=== PATIENT | female | born 1945 | race Asian ===

== ENCOUNTER → 2016-10-11 | Outpatient (CLI) | payer MEDICARE, BC ==
[2016-10-11 12:14] LABS: Basophils # (A) 0.1 k/uL (0-0.2); Basophils % (A) 1 %; CH 26.3; Eosinophils # (A) 0.1 k/uL (0-0.7); Eosinophils % (A) 2 %; HCT 41.9 % (34.0-46.0); HDW 2.63; HGB 12.9 gm/dL (11.4-16.0); Luc % (Auto) 2; Lymphocytes # (A) 1.9 k/uL (1.0-4.8); Lymphocytes % (A) 32 %; MCH 25.5 pg (25.0-35.0); MCHC 30.8 g/dL (31.0-37.0); MCV 82.7 fL (80.0-100.0); Mean Platelet Volume 8.1; Monocytes # (A) 0.4 k/uL (0-1.0); Monocytes % (A) 6 %; Neutrophils # (A) 3.5 k/uL (1.3-7.7); Neutrophils % (A) 58 %; RBC 5.07 m/uL (3.80-5.40); RDW 13.5 % (11.5-15.5); WBC 6.1 k/uL (3.8-10.6); WBC (Perox) 6.52
[2016-10-11 12:19] LABS: INR 1.2 (<1.1); Partial Thromboplastin Time 25.3 sec (22.0-30.0)
[2016-10-11 12:49] LABS: Anion Gap 11 mmol/L; Blood Urea Nitrogen 19 mg/dL (7-17); Carbon Dioxide 25 mmol/L (22-30); Chloride 106 mmol/L (98-107); Glucose 120 mg/dL (74-99); Sodium 142 mmol/L (137-145)
[2016-10-11 12:50] LABS: ALT 37 U/L (9-52); AST 21 U/L (14-36); Alkaline Phosphatase 67 U/L (38-126); Calcium 9.3 mg/dL (8.4-10.2); Non-African American GFR(MDRD) >60 (>60 ml/min/1.73 sqM); Total Bilirubin 0.6 mg/dL (0.2-1.3); Total Protein 7.3 g/dL (6.3-8.2)
[2016-10-14 10:54] LABS: Mis test requested (Blood) Factor VII Activity
== END | disposition home or self-care (01) ==
LOC: LABWHC1 11:50
PROVIDERS: ATTEND Internal Medicine Cardiovascular Disease
DX: D68.2 Hereditary deficiency of other clotting factors (principal); I10 Essential (primary) hypertension
CPT/HCPCS: 36415; 80053; 85025; 85230; 85610; 85730

== ENCOUNTER 2017-05-07 14:49 | Emergency (ER) | payer MEDICARE, BC ==
--- NOTE | 2017-05-07 15:10 | ED ---
General Adult HPI - General Chief complaint: Extremity Injury, Upper Stated complaint: Fall/right shoulder pain Time Seen by Provider: 05/07/17 15:03 Source: patient, family, RN notes reviewed Mode of arrival: ambulatory Limitations: no limitations - History of Present Illness Initial comments: Chief complaint history of present illness 72-year-old female here with family. The patient reports that she injured her right shoulder right arm at home. Painful swollen. Denies any head or neck injury. - Related Data Home Medications Medication Instructions Recorded Confirmed Ergocalciferol [Vitamin D2] 50,000 unit PO Q30D 05/07/17 05/07/17 Previous Rx's Medication Instructions Recorded Hydrocodone/Acetaminophen [[place] 1 each PO Q6HR PRN #20 tab 05/07/17 5-325] Ibuprofen [Motrin] 800 mg PO Q6HR PRN #20 tab 05/07/17 Allergies Allergy/AdvReac Type Severity Reaction Status Date / Time No Known Allergies Allergy Verified 05/07/17 15:08 Review of Systems ROS Statement: Those systems with pertinent positive or pertinent negative responses have been documented in the HPI. Review of systems patient has no other complaints this time other than pain to the proximal right humerus right shoulder. Holding it in flexed at the elbow and internally rotated over her chest. Past medical problems no high blood pressure heart disease diabetes cancer stroke or asthma. Patient denies any surgeries. No known ALLERGIES. Family history noncontributory. ROS Other: All systems not noted in ROS Statement are negative. Past Medical History Past Medical History: No Reported History History of Any Multi-Drug Resistant Organisms: None Reported Past Surgical History: No Surgical Hx Reported Past Psychological History: No Psychological Hx Reported Smoking Status: Never smoker Past Alcohol Use History: Rare Past Drug Use History: None Reported General Exam - General Exam Comments Initial Comments: General: The patient is awake and alert, he with complaint of an evidence of injury to right proximal humerus and shoulder area. Vital signs temp 98.5 pulse 68 respiratory rate 20 pulse ox 97% room air Eye: No complaint of any visual acuity changes. Ears, nose, mouth and throat: No complaint of injury to her jaw. Neck: Full range of motion, neck is supple, after admission the patient said she had mild discomfort to her posterior mid neck area. This will be x-rayed No complaint of chest pain shortness breath GI or problems. Musculoskeletal: Patient has pain swelling proximal right humerus and shoulder. Neurovascular status to the hand is intact. No complaint of pain to the fingers or wrists. No other joints involved. Neurological: No complaint of any neuro deficits. Limitations: no limitations Course Vital Signs 05/07/17 14:57 Temperature 98.5 F Pulse Rate 68 Respiratory 20 Rate O2 Sat by Pulse 97 Oximetry Medical Decision Making - Medical Decision Making Tray the cervical spine was done reviewed by me. No acute bony irregularity. There is degenerative changes. There is cervical straightening from probably spasms. No acute bony irregularity is appreciated. Awaiting radiologist's final impression. X-ray of the right shoulder was done showing a nondisplaced fracture. . Glenoid appears normal. Etiologies reviewed x-rays of the cervical spine and his final impression is mild foraminal narrowing at C5-C6. Also degenerative disc changes at C4-C5 C5- C6 as read by Dr. Anderson. X-ray of the right humerus was done reviewed by radiologist and his impression is a fracture at the surgical neck of the humerus. Some changes may be at the greater tuberosity suggesting fracture there as well. No additional fractures are evident. Impression fracture of the proximal right humerus as read by Dr. Anderson. She'll be placed on Motrin 800 mg 1 every 8 hours as needed for pain and [place] 5 /325 as needed for breakthrough pain. The patient referred on to on-call orthopedics today, Dr. Herrmann. 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 Take medications as directed Prescriptions: Hydrocodone/Acetaminophen [[place] 5-325] 1 each PO Q6HR PRN #20 tab PRN Reason: Breakthrough Pain Ibuprofen [Motrin] 800 mg PO Q6HR PRN #20 tab PRN Reason: Take with food for pain Referrals: None,Stated [Primary Care Provider] - 1-2 days Nash Sena MD [STAFF PHYSICIAN] - 1-2 days Time of Disposition: 15:46
--- NOTE | 2017-05-07 15:35 | XR ---
EXAMINATION TYPE: XR cervical spine comp DATE OF EXAM: 05/07/2017 COMPARISON: NONE HISTORY: Right arm pain, fall TECHNIQUE: 5 view cervical spine FINDINGS: Disc space narrowing is present C4-C5. Anterior vertebral body spurring is present. Milder disc space narrowing and anterior vertebral body spurring is present C5-6. There is straightening of the cervical spine in the lateral projection. Posterior spinal lamellar line is intact. Prevertebral space is normal. There is some foraminal narrowing C4-5 C5-6 on the right and C 5 6 on the left. [place] toid is limited with overlying occiput. IMPRESSION: 1. Mild foraminal narrowing C5-C6 discussed above. 2. Degenerative disc changes C4-5 C5-6.
--- NOTE | 2017-05-07 15:36 | XR ---
EXAMINATION TYPE: XR humerus RT DATE OF EXAM: 05/07/2017 COMPARISON: NONE HISTORY: Fall, pain TECHNIQUE: 2 view right humerus FINDINGS: There is a fracture at the surgical neck of the humerus. Some changes may be at the greater tuberosity suggesting fracture there as well. No additional fractures are evident. IMPRESSION: 1. Fracture of the proximal right humerus.
[2017-05-07 16:05] VITALS: BP 147/78; PULSE 74; RESP 18; TEMP 98.7
== END 2017-05-07 16:05 | disposition home or self-care (01) ==
LOC: EC 14:49
DX: S42.214A Unspecified nondisplaced fracture of surgical neck of right humerus, initial encounter for closed fracture (principal); S16.1XXA Strain of muscle, fascia and tendon at neck level, initial encounter; M47.812 Spondylosis without myelopathy or radiculopathy, cervical region; Z79.899 Other long term (current) drug therapy; W01.0XXA Fall on same level from slipping, tripping and stumbling without subsequent striking against object, initial encounter; Y92.009 Unspecified place in unspecified non-institutional (private) residence as the place of occurrence of the external cause
CPT/HCPCS: 72050; 99283

== ENCOUNTER → 2017-09-29 | Outpatient (CLI) | payer MEDICARE, BC ==
--- NOTE | 2017-09-30 11:06 | MM ---
Reason for exam: screening (asymptomatic). Last mammogram was performed 2 years and 9 months ago. History: Patient is postmenopausal. Took estrogen for 7 years. Physical Findings: A clinical breast exam by your physician is recommended on an annual basis and results should be correlated with mammographic findings. MG 3D Screening Mammo W/Cad Bilateral CC and MLO view(s) were taken. Prior study comparison: January 08, 2015, bilateral MG screening mammo w CAD. There are scattered fibroglandular densities. No significant changes when compared with prior studies. ASSESSMENT: Benign, BI-RAD 2 RECOMMENDATION: Routine screening mammogram of both breasts in 1 year.
== END | disposition home or self-care (01) ==
LOC: RADMAMWWP 13:44
PROVIDERS: ATTEND Obstetrics & Gynecology
DX: Z12.31 Encounter for screening mammogram for malignant neoplasm of breast (principal)
CPT/HCPCS: 77063; 77067

== ENCOUNTER → 2017-09-30 | Outpatient (CLI) | payer MEDICARE, BC ==
[2017-09-30 09:51] LABS: HCT 39.4 % (34.0-46.0); HGB 12.8 gm/dL (11.4-16.0); MCH 26.1 pg (25.0-35.0); MCHC 32.6 g/dL (31.0-37.0); MCV 80.2 fL (80.0-100.0); Mean Platelet Volume 8.8; Platelet Count 193 k/uL (150-450); RBC 4.91 m/uL (3.80-5.40); RDW 14.5 % (11.5-15.5); WBC 7.7 k/uL (3.8-10.6)
[2017-09-30 10:30] LABS: ALT 33 U/L (9-52); AST 24 U/L (14-36); Albumin 3.9 g/dL (3.5-5.0); Alkaline Phosphatase 61 U/L (38-126); Anion Gap 8 mmol/L; Blood Urea Nitrogen 25 mg/dL (7-17); Calcium 9.6 mg/dL (8.4-10.2); Carbon Dioxide 27 mmol/L (22-30); Chloride 107 mmol/L (98-107); Cholesterol 134 mg/dL (<200); Glucose 99 mg/dL (74-99); HDL Cholesterol 59 mg/dL (40-60); LDL Cholesterol,Calculated 64 mg/dL (0-99); Potassium 4.5 mmol/L (3.5-5.1); Sodium 142 mmol/L (137-145); Total Bilirubin 0.4 mg/dL (0.2-1.3); Total Protein 6.8 g/dL (6.3-8.2); Triglycerides 53 mg/dL (<150)
[2017-09-30 17:57] LABS: Hemoglobin A1C 5.6 % (4.0-6.0)
== END | disposition home or self-care (01) ==
LOC: LABWHC1 09:10
PROVIDERS: ATTEND Internal Medicine Cardiovascular Disease
DX: E16.2 Hypoglycemia, unspecified (principal); E55.9 Vitamin D deficiency, unspecified
CPT/HCPCS: 36415; 80053; 80061; 82306; 83036; 85027

== ENCOUNTER → 2017-11-01 | Outpatient (CLI) | payer MEDICARE, BC ==
--- NOTE | 2017-11-01 12:16 | MR ---
EXAMINATION TYPE: MR shoulder RT wo con DATE OF EXAM: 11/01/2017 COMPARISON: Radiograph 05/07/2017 HISTORY: 72-year-old female with right shoulder pain TECHNIQUE: Multiplanar, multisequence imaging of the right shoulder is performed without contrast. FINDINGS: Intracapsular long head biceps tendon is not well seen and could be markedly tendinotic or partially torn. There is partial tear of the superior and middle third subscapularis tendon fibers. Inferior third fi bers remain intact. Moderate degenerative joint space narrowing and marginal spurring at the acromioclavicular joint. Mil d encroachment onto the subacromial space. However, there is a full-thickness tear of essentially the entire supraspinatus tendon measuring 2.5 cm AP with stump retracted to the level of the AC joint by 3.1 cm. There is fluid and debris within t he intervening gap. Heterogeneous signal within the infraspinatus tendon compatible with tendinosis. Mild effusion within the subacromial/subdeltoid bursa. There are mild fatty streaks within both super status and subscapularis muscle bellies. No significan t muscle atrophy is seen. There is heterogeneous signal at the surgical neck level and some focal contour angulation along the posterior aspect of the surgical neck, refer to sagittal T1 image 18. Findings compatible with healed surgical neck fracture. There is inferior humeral spurring with suggestion of moderate thickness cartilage loss along the sup erior humeral head articular surface. There is some degenerative signal in the superior labrum and small bilateral joint effusion. Joint fl uid extends along the long head biceps tendon sheath. No Hill-Sachs deformity or os acromiale. Patchy red marrow hyperplasia is present. IMPRESSION: 1. Diffuse rotator cuff tendinosis with a full-thickness tear involving essentially the entire supras pinatus tendon (2.5 cm AP). Stump is retracted to the level of the AC joint by approximately 3.1 cm. 2. Partial tear of the superior and middle third subscapularis tendon fibers. 3. Only mild fatty infiltration of both supraspinatus and subscapularis muscle bellies at this time. 4. Intracapsular long head biceps tendon is not well seen and is either markedly tendinotic or partia lly torn. Associated long head biceps tenosynovitis. 5. 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 6. Mild glenohumeral joint osteoarthrosis. 7. Healed surgical neck fracture deformity of the proximal humerus.
== END | disposition home or self-care (01) ==
LOC: RADMRIMAIN 11:09
PROVIDERS: ATTEND Orthopaedic Surgery
DX: M75.121 Complete rotator cuff tear or rupture of right shoulder, not specified as traumatic (principal); S46.811A Strain of other muscles, fascia and tendons at shoulder and upper arm level, right arm, initial encounter; M19.011 Primary osteoarthritis, right shoulder; M65.811 Other synovitis and tenosynovitis, right shoulder

== ENCOUNTER → 2019-07-24 | Outpatient (CLI) | payer MEDICARE, BC | END | disposition home or self-care (01) | LOC: LABWHC1 13:48 | PROVIDERS: ATTEND Obstetrics & Gynecology | DX: R19.00 Intra-abdominal and pelvic swelling, mass and lump, unspecified site (principal) | CPT/HCPCS: 36415 ==

== ENCOUNTER → 2019-08-24 | Outpatient (CLI) | payer MEDICARE, BC ==
--- NOTE | 2019-08-27 10:44 | MM ---
Reason for exam: clinical finding. Last mammogram was performed 1 year and 11 months ago. History: Patient is postmenopausal. Took estrogen for 7 years. Physical Findings: Nurse did not find any significant physical abnormalities on exam. MG 3D Diag Mammo W/Cad TONI Bilateral CC and MLO view(s) were taken. XCCL view(s) were taken of the right breast. Prior study comparison: September 29, 2017, bilateral MG 3d screening mammo w/cad. January 08, 2015, bilateral MG screening mammo w CAD. There are scattered fibroglandular densities. Benign appearing bilateral calcifications. No suspicious abnormality. No significant new findings when compared with previous films. These results were verbally communicated with the patient and result sheet given to the patient on 08/24/19. ASSESSMENT: Benign, BI-RAD 2 RECOMMENDATION: Routine screening mammogram of both breasts in 1 year.
--- NOTE | 2019-08-27 10:45 | USB ---
Reason for exam: clinical finding. History: Patient is postmenopausal. Took estrogen for 7 years. US Breast LT Left complete breast ultrasound includes all four quadrants, the retroareolar region and axilla. Finding demonstrates no cystic or solid lesion seen. No suspicious sonographic finding. These results were verbally communicated with the patient and result sheet given to the patient on 08/24/19. ASSESSMENT: Negative, BI-RAD 1 RECOMMENDATION: Routine screening mammogram of both breasts in 1 year.
== END | disposition home or self-care (01) ==
LOC: RADMAMWWP 13:15
PROVIDERS: ATTEND Obstetrics & Gynecology
DX: N60.02 Solitary cyst of left breast (principal)
CPT/HCPCS: 77066; 76641; G0279; 77062

== ENCOUNTER → 2019-09-11 | Outpatient (CLI) | payer MEDICARE, BC ==
--- NOTE | 2019-09-11 11:15 | XR ---
EXAMINATION TYPE: XR chest 2V DATE OF EXAM: 09/11/2019 COMPARISON: Chest x-ray November 26, 2014. HISTORY: Presurgical study. TECHNIQUE: Frontal and lateral views of the chest are obtained. FINDINGS: There is no focal air space opacity, pleural effusion, or pneumothorax seen. The cardiac silhouette size is now mildly enlarged with atherosclerotic thoracic aorta. Underlying dextroconvex s coliosis centered mid to lower thoracic spine. IMPRESSION: Mild cardiomegaly without acute pulmonary process.
[2019-09-11 11:40] LABS: Basophils % (A) 1 %; Eosinophils # (A) 0.1 k/uL (0-0.7); Eosinophils % (A) 2 %; HCT 38.7 % (34.0-46.0); HGB 12.5 gm/dL (11.4-16.0); Lymphocytes % (A) 28 %; MCH 26.3 pg (25.0-35.0); MCHC 32.2 g/dL (31.0-37.0); MCV 81.8 fL (80.0-100.0); Mean Platelet Volume 8.8; Monocytes # (A) 0.4 k/uL (0-1.0); Monocytes % (A) 6 %; Neutrophils # (A) 4.5 k/uL (1.3-7.7); Neutrophils % (A) 62 %; Platelet Count 218 k/uL (150-450); RBC 4.73 m/uL (3.80-5.40); RDW 13.5 % (11.5-15.5); WBC 7.3 k/uL (3.8-10.6)
[2019-09-11 17:02] LABS: Albumin 4.3 g/dL (3.80-4.90); Albumin/Globulin Ratio 1.95 (1.60-3.17); Anion Gap 5.7 mmol/L (4.00-12.00); BUN/Creat Ratio 33.75 Ratio (12.00-20.00); Calcium 9.5 mg/dL (8.7-10.3); Carbon Dioxide 28.3 mmol/L (21.6-31.8); Globulin 2.2 g/dL (1.6-3.3); Non-African American GFR(CKD) 71.6 (60.0-200.0); Potassium 5.1 mmol/L (3.5-5.5); Total Bilirubin 0.4 mg/dL (0.3-1.2); Total Protein 6.5 g/dL (6.2-8.2)
== END | disposition home or self-care (01) ==
LOC: LABWHC1 10:30
DX: I51.7 Cardiomegaly (principal); R19.00 Intra-abdominal and pelvic swelling, mass and lump, unspecified site
CPT/HCPCS: 36415; 71046; 80053; 85025

== ENCOUNTER → 2021-09-10 | Outpatient (CLI) | payer MEDICARE, BC ==
[2021-09-10 15:05] LABS: ALT 17 U/L (8-44); AST 19 U/L (13-35); African American GFR (CKD) 96.2 (60.0-200.0); Albumin 4.2 g/dL (3.8-4.9); Albumin/Globulin Ratio 1.68 (1.60-3.17); Alkaline Phosphatase 82 U/L (41-126); BUN/Creat Ratio 35.71 Ratio (12.00-20.00); Calcium 9.6 mg/dL (8.7-10.3); Carbon Dioxide 26.1 mmol/L (20.0-27.5); Chloride 106 mmol/L (96-109); Globulin 2.5 g/dL (1.6-3.3); Glucose 91 mg/dL (70-110); Potassium 4.3 mmol/L (3.5-5.5); Sodium 141 mmol/L (135-145); Total Protein 6.7 g/dL (6.2-8.2)
[2021-09-10 15:06] LABS: Chol/HDL Ratio 2.42 Ratio; LDL Cholesterol,Calculated 80.7 mg/dL (0.0-131.0); VLDL Calculation 10.18 mg/dL (5.00-40.00)
== END | disposition home or self-care (01) ==
LOC: LABWHC1 08:31
PROVIDERS: ATTEND Obstetrics & Gynecology
DX: N95.9 Unspecified menopausal and perimenopausal disorder (principal)
CPT/HCPCS: 36415; 80053; 80061; 83036

== ENCOUNTER → 2021-09-30 | Outpatient (CLI) | payer MEDICARE, BC ==
--- NOTE | 2021-10-01 09:10 | MM ---
Reason for exam: screening (asymptomatic). Last mammogram was performed 2 years and 1 month ago. History: Patient is postmenopausal. Took estrogen for 7 years. Physical Findings: A clinical breast exam by your physician is recommended on an annual basis and results should be correlated with mammographic findings. MG 3D Screening Mammo W/Cad Bilateral CC and MLO view(s) were taken. XCCL view(s) were taken of the right breast. Prior study comparison: August 24, 2019, bilateral MG 3d diag mammo w/cad TONI. September 29, 2017, bilateral MG 3d screening mammo w/cad. There are scattered fibroglandular densities. No significant changes when compared with prior studies. ASSESSMENT: Benign, BI-RAD 2 RECOMMENDATION: Routine screening mammogram of both breasts in 1 year.
== END | disposition home or self-care (01) ==
LOC: RADMAMWWP 10:57
PROVIDERS: ATTEND Obstetrics & Gynecology
DX: Z12.31 Encounter for screening mammogram for malignant neoplasm of breast (principal)
CPT/HCPCS: 77063; 77067

== ENCOUNTER → 2022-12-02 | Outpatient (CLI) | payer MEDICARE ==
[2022-12-02 14:20] LABS: Basophils # (A) 0.07 X 10*3/uL (0.00-0.10); Basophils % (A) 1.1 %; Eosinophils # (A) 0.15 X 10*3/uL (0.04-0.35); Eosinophils % (A) 2.3 %; HCT 39.4 % (37.2-46.3); HGB 12.4 g/dL (12.0-15.0); Immature Grans, Automated 0.2 %; Lymphocytes # (A) 2.41 X 10*3/uL (0.90-5.00); Lymphocytes % (A) 37.2 %; MCH 25.9 pg (27.0-32.0); MCHC 31.5 g/dL (32.0-37.0); MCV 82.3 fL (80.0-97.0); Monocytes # (A) 0.52 X 10*3/uL (0.20-1.00); NRBC Per 100 WBC 0 /100 WBCS (0.0-0.0); Neutrophils # (A) 3.31 X 10*3/uL (1.80-7.70); Neutrophils % (A) 51.2 %; Platelet Count 243 X 10*3/uL (140-440); RBC 4.79 X 10*6/uL (4.10-5.20); RDW 14.5 % (11.5-14.5); WBC 6.47 X 10*3/uL (4.50-10.00)
[2022-12-02 14:53] LABS: ALT 18 U/L (8-44); AST 19 U/L (13-35); African American GFR (CKD) 92.2 (60.0-200.0); Albumin 4.1 g/dL (3.8-4.9); Albumin/Globulin Ratio 1.49 (1.60-3.17); Alkaline Phosphatase 83 U/L (41-126); BUN/Creat Ratio 32.45 Ratio (12.00-20.00); Blood Urea Nitrogen 23.4 mg/dL (9.0-27.0); Calcium 9.4 mg/dL (8.7-10.3); Carbon Dioxide 26.7 mmol/L (20.0-27.5); Chloride 104 mmol/L (96-109); Creatine Kinase 77 U/L (26-186); Globulin 2.7 g/dL (1.6-3.3); Glucose 93 mg/dL (70-110); Non-African American GFR(CKD) 79.5 (60.0-200.0); Phosphorus 3.7 mg/dL (2.4-5.1); Potassium 4.2 mmol/L (3.5-5.5); Sodium 142 mmol/L (135-145); Total Protein 6.8 g/dL (6.2-8.2); Uric Acid 4.6 mg/dL (2.9-7.7)
[2022-12-02 15:09] LABS: C Reactive Protein <0.30 mg/dL (0.00-0.80); Chol/HDL Ratio 2.15 Ratio; LDL Cholesterol,Calculated 76.8 mg/dL (0.0-131.0); VLDL Calculation 10.34 mg/dL (5.00-40.00)
[2022-12-02 16:57] LABS: Erythrocyte Sedimentation Rate 11 mm/Hr (0-30)
== END | disposition home or self-care (01) ==
LOC: LABWHC1 09:21
PROVIDERS: ATTEND Internal Medicine
DX: Z00.00 Encounter for general adult medical examination without abnormal findings (principal); I10 Essential (primary) hypertension; D64.9 Anemia, unspecified; E78.5 Hyperlipidemia, unspecified; E11.65 Type 2 diabetes mellitus with hyperglycemia; E55.9 Vitamin D deficiency, unspecified
CPT/HCPCS: 36415; 80053; 80061; 82306; 82550; 83036; 83735; 84100; 84443; 84550; 85025; 85652; 86140

== ENCOUNTER 2023-01-21 10:06 | Day surgery (SDC) | payer MEDICARE ==
[2023-01-19 11:30] VITALS: BMI 25.0
[~2023-01-21 10:06] MED LIST: LACTATED RINGERS 1,000 ML IV SCH; LIDOCAINE 1% (10MG/ML) FOR IV START INTRADERMA PRN
[2023-01-21 10:32] VITALS: RESP 16; TEMP 98.1
[2023-01-21] MEDS ORDERED: PROPOFOL 10 MG/ML 20 ML VIAL IV ONE (11:01)
[2023-01-21] MEDS ORDERED: LIDOCAINE 2% INJ 20 MG/ML (2 ML VIAL) ONE (11:01)
--- NOTE | 2023-01-21 11:18 | P.PCN ---
Date of Procedure: 01/21/23 Procedure(s) Performed: BRIEF HISTORY: Patient is a 77-year-old pleasant female scheduled for an elective colonoscopy as a part of screening for colon cancer and family history of colon cancer. Her brother was diagnosed with colon cancer in his symptoms. PROCEDURE PERFORMED: Colonoscopy with biopsy. PREOPERATIVE DIAGNOSIS: Screening for colon cancer/family history of colon cancer. IV sedation per Anesthesia. PROCEDURE: After informed consent was obtained, the patient, was brought into the endoscopy unit. IV sedation was administered by Anesthesia under continuous monitoring. Digital rectal examination was normal. Initially the Olympus CF-160 flexible video colonoscope was then inserted in the rectum, gradually advanced into the cecum without any difficulty. Careful examination was performed as the scope was gradually being withdrawn. Ileocecal valve and the appendiceal orifice were visualized and appeared normal. Prep was excellent. Mucosa of the cecum, ascending colon, transverse colon, descending colon, appeared normal. The sigmoid had 2 small 3 mm polyp that was removed by cold biopsy sigmoid colon, and rectum appeared normal. Retroflexion was performed in the rectum and grade 2 hemorrhoids were seen. The patient tolerated the procedure well. IMPRESSION: 3 mm 2 sigmoid polyp status post cold biopsy Scattered diffuse diverticulosis Hemorrhoids RECOMMENDATIONS: Findings of this examination were discussed with the patient as well as her family. She was advised to follow with the biopsy results. Advised to be a high-fiber diet and take fiber supplements a regular basis.
[2023-01-21 11:58] VITALS: BP 152/77; PULSE 54
== END 2023-01-21 12:01 | disposition home or self-care (01) ==
LOC: ORWHC2ENDO 10:06
PROVIDERS: ATTEND Internal Medicine Gastroenterology
DX: Z12.11 Encounter for screening for malignant neoplasm of colon (principal); K63.5 Polyp of colon; K64.1 Second degree hemorrhoids; K57.30 Diverticulosis of large intestine without perforation or abscess without bleeding; I10 Essential (primary) hypertension; Z91.018 Allergy to other foods; Z79.899 Other long term (current) drug therapy; Z80.0 Family history of malignant neoplasm of digestive organs
CPT/HCPCS: 88305; 45380; J2704; J2001

== ENCOUNTER → 2023-12-23 | Outpatient (CLI) | payer MEDICARE ==
[2023-12-23 16:07] LABS: Basophils # (A) 0.07 X 10*3/uL (0.00-0.10); Eosinophils # (A) 0.11 X 10*3/uL (0.04-0.35); Eosinophils % (A) 1.6 %; HCT 40.4 % (37.2-46.3); HGB 13.1 g/dL (12.0-15.0); Lymphocytes # (A) 1.85 X 10*3/uL (0.90-5.00); Lymphocytes % (A) 26.5 %; MCH 26.3 pg (27.0-32.0); MCHC 32.4 g/dL (32.0-37.0); Monocytes # (A) 0.53 X 10*3/uL (0.20-1.00); Monocytes % (A) 7.6 %; NRBC Per 100 WBC 0 X 10*3/uL (0.00-0.01); Platelet Count 241 X 10*3/uL (140-440); RBC 4.99 X 10*6/uL (4.10-5.20); RDW 14.5 % (11.5-14.5); WBC 6.98 X 10*3/uL (4.50-10.00)
[2023-12-23 16:55] LABS: Erythrocyte Sedimentation Rate 11 mm/Hr (0-30)
[2023-12-23 19:17] LABS: BUN/Creat Ratio 31.29 Ratio (12.00-20.00); Blood Urea Nitrogen 21.9 mg/dL (9.0-27.0); C Reactive Protein <0.30 mg/dL (0.00-0.80); Calcium 9.9 mg/dL (8.7-10.3); Carbon Dioxide 25.1 mmol/L (21.6-31.8); Chloride 104 mmol/L (96-109); Chol/HDL Ratio 2.29 Ratio; Creatine Kinase 104 U/L (26-186); Glucose 94 mg/dL (70-110); Potassium 4.6 mmol/L (3.5-5.5); Sodium 141 mmol/L (135-145); Uric Acid 5.2 mg/dL (2.9-7.7); VLDL Calculation 8.68 mg/dL (5.00-40.00)
== END | disposition home or self-care (01) ==
LOC: LABWHC1 11:20
PROVIDERS: ATTEND Internal Medicine
DX: Z00.00 Encounter for general adult medical examination without abnormal findings (principal); D64.9 Anemia, unspecified; I10 Essential (primary) hypertension; E78.5 Hyperlipidemia, unspecified; E55.9 Vitamin D deficiency, unspecified
CPT/HCPCS: 36415; 80048; 80061; 82306; 82550; 83735; 84100; 84443; 84550; 85025; 85652; 86140

== ENCOUNTER → 2024-01-27 | Outpatient (CLI) | payer MEDICARE ==
--- NOTE | 2024-01-30 19:29 | MM ---
Reason for Exam: Screening (asymptomatic). Last mammogram was performed 2 year(s) and 4 month(s) ago. Patient History: Menarche at age 10. First Full-Term at age 20. Postmenopausal. Patient used Estrogen for 7 years. Risk Values: Tamiko 5 year model risk: 1.5%. NCI Lifetime model risk: 2.3%. Prior Study Comparison: 09/29/2017 Bilateral Screening Mammogram, [facility]. 08/24/2019 Bilateral Diagnostic Mammogram, [facility]. 09/30/2021 Bilateral Screening Mammogram, [facility]. Tissue Density: There are scattered areas of fibroglandular density. Findings: Analyzed By CAD. The pattern is symmetrical. No significant interval change. Benign spherical calcifications present bilaterally. No suspicious groups of microcalcifications, spiculated or lobular masses, architectural distortion or other secondary signs of malignancy are mammographically apparent. Overall Assessment: Benign, BI-RAD 2 Management: Screening Mammogram of both breasts in 1 year. A negative mammogram report should not preclude additional follow up of suspicious palpable abnormalities. Patient should continue monthly self breast exam. A clinical breast exam by your physician is recommended on an annual basis and results should be correlated with mammographic findings. Note on Tamiko scores and lifetime risk: 1. A Tamiko score greater than 3% is considered moderate risk. If this is the case, consider specialist referral to assess eligibility for a risk reducing agent. 2. If overall lifetime risk for the development of breast cancer is 20% or higher, the patient may qualify for future screening with alternating mammogram and breast MRI. Electronically signed and approved by: Florin Madison D.O. Radiologis
== END | disposition home or self-care (01) ==
LOC: RADMAMWWP 13:53
PROVIDERS: ATTEND Internal Medicine
DX: Z12.31 Encounter for screening mammogram for malignant neoplasm of breast (principal); Z78.0 Asymptomatic menopausal state
CPT/HCPCS: 77063; 77067

== ENCOUNTER → 2025-03-11 | Outpatient (CLI) | payer MEDICARE ==
[2025-03-11 12:01] LABS: Creatinine,Urine Random 71.8 mg/dL; Protein/Creatinine Ratio,Urine 0.139
[2025-03-11 15:27] LABS: Basophils # (A) 0.08 X 10*3/uL (0.00-0.10); Basophils % (A) 1.1 %; Eosinophils # (A) 0.17 X 10*3/uL (0.04-0.35); Eosinophils % (A) 2.3 %; HCT 41.6 % (37.2-46.3); HGB 13.1 g/dL (12.0-15.0); Lymphocytes # (A) 2.14 X 10*3/uL (0.90-5.00); Lymphocytes % (A) 29.2 %; MCHC 31.5 g/dL (32.0-37.0); MCV 82.5 FL (80.0-97.0); Mean Platelet Volume 11.6 FL (9.5-12.2); Monocytes # (A) 0.59 X 10*3/uL (0.20-1.00); NRBC Per 100 WBC 0 X 10*3/uL (0.00-0.01); Neutrophils # (A) 4.33 X 10*3/uL (1.80-7.70); Neutrophils % (A) 59.1 %; Platelet Count 229 X 10*3/uL (140-440); RBC 5.04 X 10*6/uL (4.10-5.20); RDW 14.5 % (11.5-14.5); WBC 7.33 X 10*3/uL (4.50-10.00)
[2025-03-11 16:06] LABS: Erythrocyte Sedimentation Rate 8 mm/Hr (0-30)
[2025-03-11 16:07] LABS: % Iron Saturation 23.89 (12.00-45.00); Appearance,Urine Clear (Clear); Bilirubin,Urine Negative (Negative); Blood,Urine Negative (Negative); C Reactive Protein <0.30 mg/dL (0.00-0.80); Chol/HDL Ratio 2.26 Ratio; Color,Urine Yellow (Yellow); Creatine Kinase 71 U/L (26-186); Iron 86 UG/DL (50-170); Ketones,Urine Negative (Negative); Magnesium 1.9 mg/dL (1.5-2.4); Nitrite,Urine Negative (Negative); PH, Urine 6.5; Total Iron Binding Capacity 360 UG/DL (228-460); Uric Acid 4.8 mg/dL (2.9-7.7); Urobilinogen,Urine 0.2 E.U./DL; VLDL Calculation 7.84 mg/dL (5.00-40.00)
[2025-03-11 16:08] LABS: ALT 16 U/L (8-44); AST 20 U/L (13-35); Albumin 4.5 g/dL (3.8-4.9); Albumin/Globulin Ratio 1.88 Ratio (1.60-3.17); Alkaline Phosphatase 73 U/L (41-126); BUN/Creat Ratio 37.43 Ratio (12.00-20.00); Blood Urea Nitrogen 26.2 mg/dL (9.0-27.0); Calcium 9.7 mg/dL (8.7-10.3); Carbon Dioxide 27.9 mmol/L (21.6-31.8); Chloride 105 mmol/L (96-109); Ferritin 55.6 ng/mL (10.0-291.0); Globulin 2.4 g/dL (1.6-3.3); Glucose 93 mg/dL (70-110); Potassium 4.7 mmol/L (3.5-5.5); Sodium 142 mmol/L (135-145); Total Bilirubin 0.4 mg/dL (0.3-1.2); Total Protein 6.9 g/dL (6.2-8.2)
[2025-03-11 18:18] LABS: Urine Creatinine 71.9 mg/dL (28.0-217.0)
== END | disposition home or self-care (01) ==
LOC: LABWHC1 10:26
PROVIDERS: ATTEND Internal Medicine
DX: Z00.00 Encounter for general adult medical examination without abnormal findings (principal); D64.9 Anemia, unspecified; I12.9 Hypertensive chronic kidney disease with stage 1 through stage 4 chronic kidney disease, or unspecified chronic kidney disease; E11.22 Type 2 diabetes mellitus with diabetic chronic kidney disease; N18.2 Chronic kidney disease, stage 2 (mild); E78.5 Hyperlipidemia, unspecified
CPT/HCPCS: 36415; 80053; 80061; 81003; 82043; 82306; 82550; 82570; 82728; 83540; 83550; 83735; 84100; 84156; 84443; 84550; 85025; 85652; 86140